=== PATIENT | female | born 1995 | race Caucasian/White ===

== ENCOUNTER 2020-07-31 23:34 | Inpatient (IN) ==
[2020-08-01] MEDS ORDERED: Buffered Lidocaine 1% SYRIN 1 ml INTRADERM ONE (00:58)
[2020-08-01] MEDS ORDERED: Lactated Ringers 1000 ml BAG 1,000 ML IV ONE ×2 (00:58→20:53)
[2020-08-01] MEDS ORDERED: Lactated Ringers 1000 ml BAG 1,000 ML IV SCH (01:00)
[2020-08-01] MEDS ORDERED: Morphine 10 MG/ML VIAL (1 ml) IM ONE (01:01)
[2020-08-01] MEDS ORDERED: Promethazine INJ(RESTRICTED) 25 MG/ML 1 ml VIAL IM PRN (01:02)
[2020-08-01 01:55] LABS: Urine Benzodiazepine Screen None Detected (None Detect); Urine Cannabinoids Screen None Detected (None Detect); Urine Opiates Screen None Detected (None Detect)
[2020-08-01] MEDS ORDERED: Oxytocin in LR 20 UNITS/1,000 ML BAG IVPB SCH (14:00)
[2020-08-01 14:31] LABS: ABS Eosinophils 0.1 10^3/ul (0-0.6); ABS Lymphocytes 2.7 10^3/ul (1.0-4.8); ABS Monocytes 0.6 10^3/ul (0-0.8); Eosinophil % 0.8 %; Hematocrit 33 % (35-47); Hemoglobin 11.6 g/dL (12.0-16.0); Lymphocyte % 18.7 %; Mean Corpuscular HGB Conc 35 g/dL (31-36); Mean Corpuscular Hemoglobin 29 pg (27-31); Mean Corpuscular Volume 83 fL (80-97); Mean Platelet Volume 8.6 fL (7.4-10.4); Platelet Count 234 10^3/uL (150-450); Red Blood Count 3.99 10^6 /uL (3.70-4.87); Red Cell Distribution Width 16 % (10-15); White Blood Count 14.5 10^3/uL (3.5-10.8)
[2020-08-01] MEDS ORDERED: OBEPIDURAL 250 ML EPIDURAL ONE (20:00)
[2020-08-01] MEDS ORDERED: Lidocaine 1% VIAL 10 MG/ML VIAL ONE (20:18)
[2020-08-01] MEDS ORDERED: Sodium Citrate/Citric Acid LIQ 15 ML UDC PO PRN (20:53)
[2020-08-01] MEDS ORDERED: OBEPIDURAL 250 ML EPIDURAL SCH (21:00)
[2020-08-01 22:02] LABS: Urine Appearance Cloudy; Urine Bilirubin Negative (Negative); Urine Blood Negative (Negative); Urine Color Yellow; Urine Glucose Negative (Negative); Urine Ketones 1+ (Negative); Urine Nitrite Negative (Negative); Urine Protein Negative (Negative); Urine Specific Gravity 1.009 (1.002-1.030); Urine Urobilinogen Negative (Negative)
[2020-08-01] MEDS: Lactated Ringers 1000 ml BAG 1,000 ML IV SCH (23:32)
[2020-08-02] MEDS ORDERED: Lidocaine 1.5% EPI 1:200,000 30 ML SDV ONE (01:54)
[2020-08-02] MEDS: Ampicillin ADVAN 2 GM in NS 0.9% 100 ml BAG 100 ML IVPB SCH ×3 (06:21→18:27)
[2020-08-02] MEDS: Lactated Ringers 1000 ml BAG 1,000 ML IV SCH (06:56)
[2020-08-02] MEDS: Gentamicin ADULT 450 MG in NS 0.9% 100 ml BAG 100 ML IVPB SCH (07:02)
[2020-08-02] MEDS ORDERED: ceFOXitin 2 GM IVPREMIX 2 GM/50 ML BAG ONE (07:53)
[2020-08-02] MEDS ORDERED: ceFOXitin 2 GM IVPREMIX 2 GM/50 ML BAG IVPB ONE (07:56)
[2020-08-02] MEDS ORDERED: Morphine PF AMP (0.5MG/ML) 5 MG/10 ML AMP ONE (08:15)
[2020-08-02] MEDS ORDERED: Phenylephrine 40 mcg/mL 10mL (400mcg) SYRINGE ONE ×3 (08:15→09:24)
[2020-08-02] MEDS ORDERED: fentaNYL 100 mcg/2 ml 50 MCG/ML VIAL ONE (08:15)
[2020-08-02] MEDS ORDERED: Lidocaine 1% MPF 5 ML VIAL ONE (08:34)
[2020-08-02] MEDS ORDERED: Lidocaine 1% VIAL 10 MG/ML VIAL ONE (08:34)
[2020-08-02] MEDS ORDERED: Ondansetron 4 mg VIAL 2 MG/ML 2 ml VIAL ONE (08:41)
[2020-08-02] MEDS ORDERED: Oxytocin 10 UNITS/ML 1 ML VIAL ONE (08:51)
[2020-08-02] MEDS ORDERED: Naloxone 0.4 mg VIAL 0.4 mg/ml 1 ml VIAL IV PRN ×2 (09:15→09:18)
[2020-08-02] MEDS ORDERED: oxyCODONE/Acetamin 5/325 mg TAB PO PRN (09:15)
[2020-08-02] MEDS ORDERED: Metoclopramide 5 MG/ML VIAL (10 mg) IV PRN (09:15)
[2020-08-02] MEDS ORDERED: Ondansetron 4 mg VIAL 2 MG/ML 2 ml VIAL IV PRN (09:15)
[2020-08-02] MEDS ORDERED: Acetaminophen IV 1 GM/100ML 1,000 MG/100 ML VIAL IVPB ONE (09:18)
[2020-08-02] MEDS ORDERED: fentaNYL 100 mcg/2 ml 50 MCG/ML VIAL IV PRN (09:18)
[2020-08-02] MEDS ORDERED: Dibucaine 1% OINT 28.35 GM TUBE PR PRN (10:16)
[2020-08-02] MEDS ORDERED: Witch Hazel PAD JAR TOPICAL PRN (10:16)
[2020-08-02] MEDS ORDERED: Glycerin ADULT 2.4 gm SUPP PR PRN (10:16)
[2020-08-02] MEDS ORDERED: Lactated Ringers 1000 ml BAG 1,000 ML IV SCH (11:00)
[2020-08-02] MEDS ORDERED: Oxytocin in LR 20 UNITS/1,000 ML BAG IVPB SCH (11:00)
[2020-08-03] MEDS: Ampicillin ADVAN 2 GM in NS 0.9% 100 ml BAG 100 ML IVPB SCH ×2 (00:20→06:25)
[2020-08-03] MEDS: Gentamicin ADULT 450 MG in NS 0.9% 100 ml BAG 100 ML IVPB SCH (07:19)
[2020-08-03 08:47] LABS: ABS Eosinophils 0.1 10^3/ul (0-0.6); ABS Lymphocytes 2.3 10^3/ul (1.0-4.8); ABS Neutrophils 16.1 10^3/ul (1.5-7.7); Eosinophil % 0.3 %; Hematocrit 29 % (35-47); Hemoglobin 9.6 g/dL (12.0-16.0); Mean Corpuscular HGB Conc 34 g/dL (31-36); Mean Corpuscular Hemoglobin 29 pg (27-31); Mean Corpuscular Volume 85 fL (80-97); Mean Platelet Volume 8.3 fL (7.4-10.4); Platelet Count 213 10^3/uL (150-450); Red Blood Count 3.36 10^6 /uL (3.70-4.87); Red Cell Distribution Width 16 % (10-15); White Blood Count 19.5 10^3/uL (3.5-10.8)
[2020-08-05 07:31] VITALS: BP 124/63
== END 2020-08-05 12:20 | disposition home or self-care (01) ==
LOC: MCHOBOUT 23:34 → MCHOB 08-01 01:02
PROVIDERS: ADMIT Midwife; ATTEND Obstetrics & Gynecology